=== PATIENT | male | born 1935 | race Caucasian/White ===

== ENCOUNTER 2021-11-20 04:19 | Day surgery (SDC) | payer OTHER ==
[2021-11-18 09:03] VITALS: BMI 21.2
[2021-11-20] MEDS ORDERED: IOHEXOL 180 MG/1 ML ML IJ ONE (08:50)
[2021-11-20] MEDS ORDERED: BUPIVACAINE HCL/PF 0.75% 10 ML VIAL NR ONE (08:50)
[2021-11-20] MEDS ORDERED: LIDOCAINE 1% P/F 10 MG/ML VIAL INF ONE (08:50)
[2021-11-20 10:05] VITALS: TEMP 98
[2021-11-20 10:08] VITALS: BP 140/60; PULSE 60
== END 2021-11-20 10:05 | disposition home or self-care (01) ==
LOC: JASU-SURG 04:19
PROVIDERS: ATTEND Pain Medicine Pain Medicine
PROC: 3E0T3BZ Introduction of Anesthetic Agent into Peripheral Nerves and Plexi, Percutaneous Approach (ICD-10-PCS; 2021-11-20)
PROC: 3E0T33Z Introduction of Anti-inflammatory into Peripheral Nerves and Plexi, Percutaneous Approach (ICD-10-PCS; principal; 2021-11-20 08:00)
DX: M47.816 Spondylosis without myelopathy or radiculopathy, lumbar region (principal)
CPT/HCPCS: 76000-TC-FY

== ENCOUNTER 2021-12-08 04:43 | Day surgery (SDC) | payer OTHER ==
[2021-12-04 13:09] VITALS: BMI 21.2
[2021-12-08] MEDS ORDERED: BUPIVACAINE HCL/PF 0.75% 10 ML VIAL ONE (09:54)
[2021-12-08] MEDS ORDERED: LIDOCAINE HCL 1% PRESERVATIVE FREE - 30ML VIAL IJ ONE ×2 (10:01)
[2021-12-08] MEDS ORDERED: BUPIVACAINE HCL/PF 0.75% 10 ML VIAL NR ONE (10:01)
[2021-12-08 10:43] VITALS: BP 149/87; PULSE 77; TEMP 98.2
== END 2021-12-08 10:50 | disposition home or self-care (01) ==
LOC: JASU-SURG 04:43
PROVIDERS: ATTEND Pain Medicine Pain Medicine
PROC: BR16YZZ Fluoroscopy of Lumbar Facet Joint(s) using Other Contrast (ICD-10-PCS; 2021-12-08)
PROC: 3E0T3BZ Introduction of Anesthetic Agent into Peripheral Nerves and Plexi, Percutaneous Approach (ICD-10-PCS; principal; 2021-12-08 09:30)
DX: M47.816 Spondylosis without myelopathy or radiculopathy, lumbar region (principal)
CPT/HCPCS: 76000-TC-FY

== ENCOUNTER 2023-02-15 07:41 | Emergency (ER) | payer OTHER ==
[2023-02-15 07:51] VITALS: BP 144/64; PULSE 102; RESP 16; TEMP 98.4; BMI 22.8
[2023-02-15] MEDS ORDERED: ALBUTEROL SO4 2.5/IPRATROPIUM 0.5 INH SOL 3 ML VIAL.NEB. NEB ONE ×3 (09:26→09:36)
[2023-02-15] MEDS ORDERED: DEXAMETHASONE SOD PHOSPHATE 10 MG/1 ML VIAL IM ONE (10:41)
[2023-02-15] MEDS ORDERED: ALBUTEROL SO4 HFA INHALER IH ONE ×2 (10:41→10:57)
[2023-02-15] MEDS ORDERED: DEXAMETHASONE SOD PHOSPHATE 10 MG/1 ML VIAL ONE (10:57)
== END 2023-02-15 11:14 | disposition home or self-care (01) ==
LOC: JER 07:41 → JERFT 07:41
PROC: 3E023GC Introduction of Other Therapeutic Substance into Muscle, Percutaneous Approach (ICD-10-PCS; principal; 2023-02-15)
PROC: 3E0F7GC Introduction of Other Therapeutic Substance into Respiratory Tract, Via Natural or Artificial Opening (ICD-10-PCS; 2023-02-15)
PROC: 3E0F7GC Introduction of Other Therapeutic Substance into Respiratory Tract, Via Natural or Artificial Opening (ICD-10-PCS; 2023-02-15)
DX: R05.1 Acute cough (principal); R09.81 Nasal congestion; R06.2 Wheezing; Z20.822 Contact with and (suspected) exposure to COVID-19
CPT/HCPCS: 0241U-QW; 71046-TC-FY; 94640; 96372; 99284-25; J1100

== ENCOUNTER 2023-07-19 15:39 | Emergency (ER) | payer OTHER ==
[2023-07-19 15:49] VITALS: BP 131/74; PULSE 74; RESP 18; TEMP 97.7; BMI 22.0
== END 2023-07-19 23:00 | disposition home or self-care (01) ==
LOC: JER 15:39
DX: S80.211A Abrasion, right knee, initial encounter (principal); S80.212A Abrasion, left knee, initial encounter; R07.9 Chest pain, unspecified; M25.512 Pain in left shoulder; M25.561 Pain in right knee; M25.562 Pain in left knee; W01.0XXA Fall on same level from slipping, tripping and stumbling without subsequent striking against object, initial encounter
CPT/HCPCS: 70450-TC; 71046-TC-FY; 72125-TC; 72170-TC-FY; 73030-TC-LT-FY; 73552-TC-LT-FY; 73560-TC-LT-FY; 73560-TC-RT-FY; 93005; 93010; 99285-25